=== PATIENT | male | born 1990 | race Caucasian/White ===

== ENCOUNTER 2019-10-06 20:26 | Emergency (ER) | payer OTHER, SELFPAY ==
[2019-10-06 20:41] VITALS: BP 157/88; PULSE 106; RESP 14; TEMP 37.9; O2SAT 98
--- NOTE | 2019-10-06 20:49 | ED.URI ---
HPI - URI/Sore Throat General Chief Complaint: Upper Respiratory Infection Stated Complaint: aspiration pneumonia Time Seen by Provider: 10/06/19 20:30 Source: patient Mode of arrival: ambulatory Limitations: no limitations History of Present Illness HPI Narrative: Cale is a 28-year-old male patient. He states that earlier today he was treated at a hospital in [place]. He was diagnosed to have pneumonia. 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 It was apparently thought that this may have something to do with his pneumonia. He had a CT scan of the chest done and this apparently showed the pneumonia.. He was given Rocephin intravenously 1 does and then he was given a prescription for Levaquin p.o.. He lost his prescription and that is the reason why he is here. He wants to get the prescription now. 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 He had quit 2 months ago but the knee took 1 dose 2 days ago. He has not been treated for hepatitis C. he does use E cigarettes vape. Prior to this he used to smoke half a pack of cigarettes a day for 8 years. Denies alcohol use. No other medical problems. He has a low-grade fever of 100.3? F. elicited complaint: fever, cough, nasal congestion and other ( Hepatitis-C) Pertinent past history: pneumonia and other ( hepatitis-C) Onset (ago): day(s) ( 2 days) Consistency: intermittent Severity: moderate Description of mucous: clear Able to tolerate fluids by mouth: Yes Exacerbating factors: other ( probably vaping makes it worse) Relieving factors: nothing Context: other ( see HPI narrative of) Associated symptoms: fever and chills Treatments prior to arrival: other ( see HPI narrative above) Related Data Allergies Allergy/AdvReac Type Severity Reaction Status Date / Time No Known Allergies Allergy Unverified 01/03/18 00:57 Review of Systems Review of Systems: All systems reviewed & are unremarkable except as noted in HPI and below Constitutional: Constitutional: Reports as per HPI and Reports fever(s) Eyes: Eyes: Reports as per HPI and Denies change in vision ENT: Reports system reviewed and no additional complaints, except as documented and Reports nasal congestion Respiratory: Comments: chest hurts with coughing Gastrointestinal: Gastrointestinal: Reports no additional gastrointestinal complaints, Denies abdominal pain, Denies diarrhea and Denies vomiting Genitourinary: Genitourinary: Reports no additional male genitourinary complaints, Denies hematuria and Denies dysuria Musculoskeletal: Musculoskeletal: Reports no additional musculoskeletal complaints, Denies back pain and Denies muscle cramps Integumentary/Breasts: Skin/Breast: Reports system reviewed and no additional complaints, except as docu, Denies erythema and Denies rash Neurologic: Reports system reviewed and no additional complaints, except as documented, Denies vertigo, Denies dizziness, Denies syncope, Denies headache(s), Denies focal weakness, Denies numbness and Denies weakness Psychiatric: Psychiatric: Reports no additional psychiatric complaints, Denies anxiety and Denies depression Endocrine: Endocrine: Reports no additional endocrine complaints, Denies polydipsia and Denies polyuria Hematologic/Lymphatic: Hematologic/Lymphatic: Reports no additional hematologic/lymphatic complaints, Denies easy bleeding and Denies easy bruising Allergic/Immunologic: Allergic/Immunologic: Reports no additional allergic/immunologic complaints, Denies lip swelling and Denies tongue swelling PMFSH Past Medical History Medical History Hepatitis C Pneumonia Surgical History Surgical History No history of previous surgery Social History Social History Smoking packs per day: 0.5 Smoking cigarettes per da
[2019-10-06 21:09] VITALS: RESP 14; O2SAT 98
== END 2019-10-06 21:19 | disposition home or self-care (01) ==
PROVIDERS: Emergency Provider Surgery
DX: J18.9 Pneumonia, unspecified organism (principal); F17.200 Nicotine dependence, unspecified, uncomplicated
CPT/HCPCS: 99283; A9270

== ENCOUNTER 2019-10-15 14:57 | Emergency (ER) | payer OTHER, SELFPAY ==
[2019-10-15] VITALS (10 sets, daily range): BP systolic 95–186; BP diastolic 59–108; PULSE 127–180; RESP 20–49; TEMP 37.2–38.2; O2SAT 81–98
--- NOTE | ~2019-10-15 | XR_ITS ---
XR chest 1V portable 10/15/2019 15:50 Indication: Shortness of breath. Hypoxia. Procedure: AP portable chest Comparison: 10/15/2019 Findings: Patchy a bilateral airspace disease, predominantly affecting the lung bases, compatible wit h pneumonia. Small left pleural effusion. No pneumothorax. Impression: 1: Patchy bilateral airspace disease, compatible with pneumonia. Reviewed, dictated and finalized at location B. D SUPERINTENDENT Impression: 1: Patchy bilateral airspace disease, compatible with pneumonia.
--- NOTE | ~2019-10-15 | XR_ITS ---
EXAMINATION: XR chest ET placement EXAM DATE: 10/15/2019 18:48 INDICATION: Feeding tube placement. Intubated. TECHNIQUE: Portable AP frontal chest x-ray was obtained. Comparison is made to prior examination from earlier same date. FINDINGS: Endotracheal tube tip is 5 centimeters above the cassius (ideal range is between 2 to 5 cm). Feeding tube tip and side-port project over left upper quadrant, adequate. There is extensive bilateral airspace disease with interval progression compared to examination from 3 hours earlier. Small bilateral pleural effusions. There is no pneumothorax suspected. There is cardiomegaly. The bones and soft tissues are unremarkable. IMPRESSION: 1. Tubes in position. 2. Progression in extensive acute airspace disease. Consider pneumonia, septic emboli (given chest C T appearance), ARDS, edema. 3. Small pleural effusions. 4. Cardiomegaly. Reviewed, dictated and finalized at location A. PORTER IMPRESSION: 1. Tubes in position. 2. Progression in extensive acute airspace disease. Consider pneumonia, septic emboli (given chest CT appearance), ARDS, edema. 3. Small pleural effusions. 4. Cardiomegaly.
--- NOTE | ~2019-10-15 | CT_ITS ---
EXAMINATION: CTA chest PE protocol EXAM DATE: 10/15/2019 16:33 INDICATION: Hypoxia, tachypnea. Elevated d-dimer. Airspace disease. TECHNIQUE: Spiral CTA of the chest (pulmonary arteries) was performed with 100 cc Omnipaque 350 intr avenous contrast injection. Images were acquired during the pulmonary arterial phase. Coronal maxi mum intensity projection 3D-reconstructions were created by the technologist on dedicated workstation . Axial, coronal and sagittal reformatted images were reviewed. The dose-length product (DLP) for t his examination was 332.52 mGy-cm. The exposure was tailored according to patient size (auto mA exp osure control), and iterative reconstruction (ASIR) was used as additional dose reduction technique. There is no prior study for comparison. FINDINGS: There are no pulmonary emboli in the 1st through 3rd order (central and interlobar) pulmon suman arteries. Some loss of attenuation in the segmental pulmonary arteries due to respiratory motion , but no intraluminal filling defects suspected. No thoracic aortic dissection. A there is right l ower lobe multisegmental consolidation. There are scattered regions of airspace disease throughout elvis th lungs, some regions of cavitation. Most likely pneumonia. Please clinically correlate. Small to m oderate bilateral pleural effusions. Tracheobronchial tree is patent. There is no mediastinal, hil ar or axillary lymphadenopathy. There is no pneumothorax. There is cardiomegaly. No evidence of coronary arterial calcification. Probable hepatosplenomegaly. There is thoracic spondylosis without osteoblastic or osteolytic lesions identified. IMPRESSION: 1. Limited segmental evaluation, but no pulmonary emboli are suspected. 2. Extensive bilateral airspace disease most confluent in the right lower lobe, with scattered nodul ar regions, several with cavitation. Most likely pneumonia. Septic emboli also possible. Clinical cor relation. 3. Cardiomegaly, unusual for patient's age. 4. Probable hepatosplenomegaly. Reviewed, dictated and finalized at location A. SERVICE MANAGER IMPRESSION: 1. Limited segmental evaluation, but no pulmonary emboli are suspected. 2. Extensive bilateral airspace disease most confluent in the right lower lobe , with scattered nodular regions, several with cavitation. Most likely pneumoni a. Septic emboli also possible. Clinical correlation. 3. Cardiomegaly, unusual for patient's age. 4. Probable hepatosplenomegaly.
--- NOTE | 2019-10-15 15:02 | ECG_ITS ---
Measurements Intervals Bend Rate: 136 P: 64 MD: 115 QRS: 54 QRSD: 100 T: 38 QT: 313 QTc: 471 Interpretive Statements SINUS TACHYCARDIA WITH SHORT MD INTERVAL DELAYED PRECORDIAL R/S TRANSITION BASELINE ARTIFACT- I, II, III, AVR, AVL, AVF, V1 ABNORMAL ECG Electronically Signed On 10-15-2019 15:47:15 LEAF [employer]ICKER by Alonso Jacobsen D.O.
--- NOTE | 2019-10-15 15:16 | ED.GENADULT ---
HPI - General Adult General Chief complaint: Shortness of Breath/Dyspnea Stated complaint: sent over from doctors History of Present Illness HPI narrative: Cale is a 29-year-old man with a past medical history of tobacco use, marijuana use, Hep C, E cigarette use and IV heroin use that was referred to the ER from clinic with hypoxia. he started feeling poor 9 or 10 days ago when he went to an emergency department in [place]. he was diagnosed with pneumonia and given an unknown antibiotic. However, he lost a script so he came to the emergency department here on October 06 and was given Levaquin. He was treated and did feel better. However over the last couple days he has had increasing shortness of breath, cough, fevers, sweats and fatigue. He denies any chest pain. MD complaint: SOB and cough Related Data Home Medications Medication Instructions Recorded Confirmed No Home Medications 10/15/19 10/15/19 Allergies Allergy/AdvReac Type Severity Reaction Status Date / Time No Known Allergies Allergy Unverified 01/03/18 00:57 Review of Systems Constitutional: Constitutional: Reports chills, Reports fatigue and Reports fever(s) Eyes: Eyes: Reports no additional eye complaints ENT: Reports system reviewed and no additional complaints, except as documented Cardiovascular: Cardiovascular: Denies chest pain, Reports rapid heart rate and Denies radiating jaw, neck or arm pain Respiratory: Respiratory: Reports cough, Reports dyspnea and Denies wheezing Gastrointestinal: Gastrointestinal: Reports abdominal pain, Reports nausea and Denies vomiting Genitourinary: Genitourinary: Reports no additional male genitourinary complaints Musculoskeletal: Musculoskeletal: Reports no additional musculoskeletal complaints Integumentary/Breasts: Skin/Breast: Reports system reviewed and no additional complaints, except as docu Neurologic: Reports system reviewed and no additional complaints, except as documented Psychiatric: Psychiatric: Reports no additional psychiatric complaints Endocrine: Endocrine: Reports no additional endocrine complaints Hematologic/Lymphatic: Hematologic/Lymphatic: Reports no additional hematologic/lymphatic complaints Allergic/Immunologic: Allergic/Immunologic: Reports no additional allergic/immunologic complaints [facility] Past Medical History Medical History Hepatitis C Pneumonia Surgical History Surgical History No history of previous surgery Social History Social History Smoking packs per day: 0.5 Smoking cigarettes per day: 10.0 Years smoked: 8 Smoking pack-years: 4.00 Smoking status: Current every day smoker Tobacco type: e-cigarettes Substance use: current Substance use type: heroin Additional occupation/education comments: works in a [employer] Gender identity (if verbalized by the patient): Male Exam Const: General: alert, diaphoretic and ill appearing acutely Orientation/consciousness: patient oriented x3 Limitations: no limitations and No altered mental status HENMT: Other: normocephalic, atraumatic Eyes: Conjunctivae: conjunctivae normal Pupils: Equal, round and reactive pupils present Neck: Neck: normal visual inspection Chest: Chest palpation & inspection: normal inspection of the chest Resp: Other: increased respiratory effort, deep fast respirations, tachypnea, severely diminished lung sounds on the right middle and lower lobes. was satting in the low 90s on 5 L Cardio: Rhythm: regular rhythm Heart sounds: no murmurs GI: GI Palp: Yes Soft to palpation, No Tenderness to palpation present (GI) and No Guarding due to palpation present (GI) Skin: General skin exam: normal color Rashes: no rashes Other: no splinter hemorrhages or Janeway lesions Neuro: General: nelly
[2019-10-15] MEDS: SODIUM CHLORIDE 0.9% IV 1,000 ML 999 ML (15:22)
[2019-10-15 15:32] LABS: Hematocrit 32.4 % (40.0-54.0); Hemoglobin 11.3 g/dL (14.0-18.0); Immature Platelet Fraction Pct 8.5 % (1.0-7.0); Mean Corpuscular HGB Conc 34.9 g/dL (32.0-36.0); Mean Corpuscular Hemoglobin 27.1 pg (27.0-31.0); Mean Corpuscular Volume 77.7 fL (78.0-102.0); Mean Platelet Volume 12.2 fl (8.7-11.0); Platelet Count Result 66 K/mm3 (150-420); Red Blood Count 4.17 M/mm3 (4.70-6.10); Red Cell Distribution Width 14.6 % (11.6-14.4); White Blood Count 17.1 K/mm3 (4.8-10.8)
--- NOTE | 2019-10-15 15:32 | PC.NURSE ---
SpO2 87-89% on 5L via NC. Pt placed on NRB at 15L, SpO2 increased to 93%.
[2019-10-15 15:38] LABS: Base Excess ABG -0.2 mmol/L (0-2); HCO3 ABG 22.3 mmol/L (23-29); Oxygen Content ABG 13.9 %vol (16.0-22.0); Oxygen Saturation ABG 95.2 % (95-97); Oxyhemoglobin 92.7 % (94-100); PCO2 ABG 29.2 mmHg (35-45); PO2 ABG 86.3 mmHg (80-90); Total Hemoglobin 10.6 g/dL
[2019-10-15 15:39] LABS: Device NON-REBREATHER MASK; Modified Allen's Test Pass; Site Drawn RIGHT RADIAL
[2019-10-15 15:48] LABS: Alanine Aminotransferase 31 U/L (16-63); Albumin Level 1.7 g/dL (3.4-5.0); Alkaline Phosphatase 186 U/L (46-116); Anion Gap 14.4 mmol/L (7-16); Aspartate Amino Transferase 39 U/L (15-37); Blood Urea Nitrogen 19 mg/dL (7-18); Calcium 7.8 mg/dL (8.5-10.1); Carbon Dioxide 25 mmol/L (21-32); Chloride 97 mmol/L (98-108); Estimated CRCL calculation 87 ml/min; Estimated Glomerular Filt Rate > 60; Glucose 178 mg/dL (70-99); Lipase 26 U/L (73-393); Osmolality Calculated 282 mOsm/kg (285-295); Potassium 3.4 mmol/L (3.5-5.1); Sodium 133 mmol/L (136-145); Total Protein 7.1 g/dL (6.4-8.2)
--- NOTE | 2019-10-15 15:48 | PC.NURSE ---
ETCO2 44 per NC with capnography NC.
[2019-10-15 15:49] LABS: Influenza Control Valid (Valid)
[2019-10-15 15:51] LABS: BNP 232 pg/mL (0-100)
[2019-10-15 15:52] LABS: Band Neutrophils Percent 4 % (0-6); Basophils Percent Manual 0 % (0-1); Eosinophils Percent Manual 0 % (1-6); Lymphocytes Absolute Manual 0.68 K/mm3 (1.1-4.5); Lymphocytes Percent Manual 4 % (18-44); Metamyelocytes Percent 1 %; Monocytes Absolute Manual 0.51 K/mm3 (0.1-0.90); Monocytes Percent Manual 3 % (3-9); Myelocytes Percent 1 %; Neutrophils Absolute Manual 15.56 K/mm3 (1.3-6.7); Neutrophils Percent Manual 87 % (46-73); Total Cells Counted 100; Troponin I 0.69 ng/mL (0.00-0.056)
[2019-10-15 15:53] LABS: Platelet Estimate Decreased (Adequate)
[2019-10-15 15:54] LABS: D Dimer 30.83 mg/L (0.19-0.50)
[2019-10-15] MEDS: SODIUM CHLORIDE 0.9% IV 1,000 ML 999 ML IV CONT (15:57)
[2019-10-15] MEDS: MORPHINE SULFATE 2 MG/ML INJ IV PUSH (15:58)
--- NOTE | 2019-10-15 16:09 | PC.NURSE ---
Pt stood on side of bed to urinate in urinal. RR increased, becoming more labored. SpO2 decreased to 87%.
[2019-10-15 16:10] LABS: Bilirubin Urine Negative (Negative); Color Urine Yellow (Yellow); Glucose Urine UA Negative (Negative); Ketones Urine Negative (Negative); Leukocyte Esterase Ur Trace (Negative); Nitrate Urine Negative (Negative); Protein Urine Trace (Negative)
[2019-10-15 16:18] LABS: Add Urine Microscopic? YES; Appearance Urine Sl Cloudy (Clear); Blood Urine Trace-Intact (Negative); RBC Urine 0-2 /hpf (0-2); Squamous Epithelial Cell Urine Few /hpf (Few)
[2019-10-15 16:19] LABS: Bacteria Urine Trace /hpf; White Blood Cell Casts Urine Present /lpf
[2019-10-15 16:22] LABS: Amphetamine Screen Urine Negative (Negative); Barbiturate Screen Urine Negative (Negative); Benzodiazepines Screen Urine Negative (Negative); Cannabinoid Screen Urine Negative (Negative); Cocaine Screen Urine Negative (Negative); Methadone Screen Urine Positive (Negative); Opiate Screen Urine Positive (Negative); Phencyclidine Screen Urine Negative (Negative)
--- NOTE | 2019-10-15 16:36 | PC.NURSE ---
Return from ct scan. Reconnected to monitors. SpO2 94% on 15L NRB. Requesting additional pain medications. Dr Pallavi garcia.
--- NOTE | 2019-10-15 16:53 | PC.NURSE ---
Call placed to [facility] for transfer. Awaiting call back from party supply specialist.
--- NOTE | 2019-10-15 16:53 | PC.NURSE ---
Dr Olivo at bedside talking with pt re: ct scan results.
--- NOTE | 2019-10-15 17:07 | PC.NURSE ---
[facility] agronomy instructor physician returning phone call at this time.
--- NOTE | 2019-10-15 17:22 | PC.NURSE ---
Pt repeatedly requesting Morphine. Dr Olivo aware.
[2019-10-15 17:27] LABS: HCO3 ABG 21.4 mmol/L (23-29); Oxygen Content ABG 13.5 %vol (16.0-22.0); Oxygen Saturation ABG 91.9 % (95-97); PCO2 ABG 28.3 mmHg (35-45); PO2 ABG 70.1 mmHg (80-90); Total Hemoglobin 10.5 g/dL
[2019-10-15 17:28] LABS: Device NON-REBREATHER MASK; Modified Allen's Test Pass; Site Drawn RIGHT RADIAL
[2019-10-15] MEDS: SODIUM CHLORIDE 0.9% IV 1,000 ML 125 ML IV CONT (17:30)
[2019-10-15 17:51] LABS: Lactic Acid 3.4 mmol/L (0.4-2.0)
--- NOTE | 2019-10-15 18:00 | PC.NURSE ---
Decision made to intubate pt. PT moved to trauma room, respiratory called in.
--- NOTE | 2019-10-15 18:15 | PC.NURSE ---
181- Etomidate 20mg IVP and Succinylcholine 100mg IVP 183- Etomidate 20mg IVP 183- Succinylcholine 100mg IVP 184- Versed 4mg IVP 184- Fentanyl 100mg IVP 1854- Ketamine 50mg IVP 1858- Versed 2mg IVP and Fentanyl 100mg IVP 182- Multiple unsuccessful intubation attempts made per Dr Olivo. [facility] vacuum pan operator present in ER at bedside for attempt. 1832- Pt intubated by [facility] vacuum pan operator. ETT 7.0, secured at 25cm at lip. 184- OGT size 18fr placed at this time, bilious output noted.
[2019-10-15] MEDS: PROPOFOL IV EMULSION 100 ML 4.2 MG IV CONT (18:35)
--- NOTE | 2019-10-15 18:49 | PC.NURSE ---
ARCH crew arrived to room.
--- NOTE | 2019-10-15 19:00 | PC.NURSE ---
Pt now on ARCH equipment monitor phototypesetting.
--- NOTE | 2019-10-15 19:09 | PC.NURSE ---
Report to [facility] ICU.
--- NOTE | 2019-10-15 19:10 | PC.NURSE ---
ARCH crew requesting to take vial of Vecuronium and remaining Ketamine from [facility] for trip to [facility]. Dr Olivo aware. Witnessed by Jaime Carlos RN.
== END 2019-10-15 19:15 | disposition short-term general hospital (02) ==
LOC: CHSED 14:58
PROVIDERS: Emergency Provider Family Medicine; PCP Family Medicine
DX: J96.01 Acute respiratory failure with hypoxia (principal); J18.9 Pneumonia, unspecified organism; F17.200 Nicotine dependence, unspecified, uncomplicated
CPT/HCPCS: 31500; 36415; 36600; 71045; 71275; 80053; 80307; 81001; 82805; 83605; 83690; 83880; 84484; 85025; 85055; 85380; 87040; 87186; 87804; 93005; 96361; 96365; 96367; 96375; 99291; J0330; J0692; J2250; J2270; J2704; J3010; J3370; J7030; Q9965